=== PATIENT | male | born 1970 | race Caucasian/White ===

== ENCOUNTER 2024-07-27 14:09 | Outpatient (OUT) | payer BC, SELFPAY ==
--- NOTE | 2024-07-27 14:16 | ECG_ITS ---
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
[2024-07-27 15:08] LABS: Basophils Percent Auto 0.2 % (0.2-2.0); Eosinophils Percent Auto 0.6 % (0.9-7.0); Hematocrit 43.6 % (42.0-54.0); Hemoglobin 15.5 g/dL (14.0-18.0); Lymphocytes Absolute Auto 1.5 10^3/uL (1.2-3.8); Lymphocytes Percent Auto 31.2 % (20.5-60.0); Mean Corpuscular HGB Conc 35.6 g/dL (29.9-35.2); Mean Corpuscular Hemoglobin 30.3 pg (25.9-34.0); Mean Corpuscular Volume 85.2 fL (80.0-94.0); Mean Platelet Volume 10.4 fL (9.5-13.5); Monocytes Absolute Auto 0.5 10^3/uL (0.3-0.8); Monocytes Percent Auto 11.2 % (1.7-12.0); Neutrophils Absolute Auto 2.7 10^3/uL (1.4-6.5); Neutrophils Percent Auto 56.8 % (43.0-75.0); Platelet Count 174 10^3/uL (150-450); Red Blood Count 5.12 10^6/uL (4.70-6.10); Red Cell Distribution Width 11.9 % (11.0-15.0); White Blood Count 4.7 10^3/uL (4.0-11.0)
[2024-07-27 15:13] LABS: Anion Gap 11.5; BUN Creatinine Ratio 12.7; Calcium 9.1 mg/dL (8.5-10.1); Carbon Dioxide 31.8 mmol/L (21.0-32.0); Chloride 100 mmol/L (98-107); Estimated GFR (African America >60 (>=60 mL/min/1.73m^2); Estimated GFR (Non-African Ame >60 (>=60 mL/min/1.73m^2); Glucose 96 mg/dL (74-106); Potassium 4.3 mmol/L (3.5-5.1); Sodium 139 mmol/L (136-145)
[2024-07-27 15:19] LABS: INR 0.98; Partial Thromboplastin Time 27.9 sec (22.3-36.2); Prothrombin Time 10.4 sec (9.0-11.6)
== END 2024-07-27 14:10 | disposition home or self-care (01) ==
PROVIDERS: PCP Family Medicine; Visit Provider Otolaryngology
DX: Z01.810 Encounter for preprocedural cardiovascular examination (principal); Z01.812 Encounter for preprocedural laboratory examination; J32.0 Chronic maxillary sinusitis
CPT/HCPCS: 36415; 80048; 85025; 85610; 85730; 93005

== ENCOUNTER 2024-08-06 07:51 | Day surgery (SDC) | payer BC, SELFPAY ==
[2024-07-27 14:44] VITALS: BP 143/93; PULSE 75; TEMP 36.4; O2SAT 98; BMI 30.2
[2024-08-06] VITALS (8 sets, daily range): BP systolic 127–141; BP diastolic 81–87; PULSE 68–87; TEMP 36.1–36.2; O2SAT 92–95; BMI 29.4
--- NOTE | 2024-08-06 | OP_ITS ---
OPERATION DATE: 08/06/2024 SURGEON: Neha Davey M.D. PREOPERATIVE DIAGNOSIS: Chronic maxillary sinusitis. POSTOPERATIVE DIAGNOSIS: Chronic maxillary sinusitis. PROCEDURE: Bilateral maxillary antrostomy with removal of tissue. ANESTHESIA: General endotracheal. COMPLICATIONS: None. FINDINGS: Copious bilateral maxillary sinus fungal debris consistent with allergic fungal sinusitis. INDICATIONS: This 53-year-old man presented with a long history of chronic sinusitis and CT findings suggestive of bilateral maxillary allergic fungal sinusitis. PROCEDURE: Patient identified in the holding area and taken back to the OR where he was placed in a supine position. After induction of general endotracheal anesthesia, Afrin soaked pledgets were placed in each side of the nose and, after waiting adequate time for decongestion, the nose was copiously irrigated bilaterally. Attention was then turned to the right nose and lidocaine 1% with 1:100,000 epinephrine injected into the middle turbinate and lateral nasal wall. An Afrin soak jessica was placed lateral to the turbinate. Then, the same was done on the left. After waiting adequate time for hemostasis, the right nose was approached with the nasal endoscope. A curved scissor to the right was used to incise the anterior portion of the middle turbinate and it was removed with an ethmoid forcep. The posterior root of the turbinate was prophylactically cauterized to minimize the risk of postoperative bleeding. The uncinate process was then incised with a sickle knife and removed with an ethmoid forcep. The natural ostium of the maxillary sinus was identified with a [place] seeker and the antrostomy was opened posteriorly with a straight cutting forcep and inferiorly with side biting forceps and anteriorly with back biting forceps. There was immediately evident fungal debris. Using various suctions and copious irrigation, the sinus was completely debrided and, after verifying that the sinus was fully debrided with a 70 degree nasal endoscope, the sinus was irrigated several more times. Attention was then turned to the left side of the nose and the same procedure was performed. Patient was then awakened and taken to the recovery room in good condition. LUIS
--- OUTSIDE RECORDS SUMMARY | 2024-08-06 07:54 | XMS_ITS | CCD ---
Author Organization [facility] Care Team Providers Care Credit Department Manager Name Role Phone Rhonda Pitts MD Primary Care Provider Rhonda Pitts MD Unavailable Rhonda Pitts MD Primary Care Provider [phone] Magda Haywood MD Attending Provider [phone] RHONDA PITTS Attending Unavailable RHONDA PITTS Referring Unavailable NEHA AGEE Attending Unavailable ISABELLA MARLEY Attending Unavailable RHONDA PITTS Attending Unavailable AIDE GTZ Attending Unavailable Magda Haywood Admitting Unavailable Rhonda Pitts Primary Care Unavailable Magda Haywood Attending Unavailable Medications Current Medications Medication Drug Class(es) Dates Sig (Normalized) Sig (Original) amLODIPine 5 mg oral tablet (13 sources) Dihydropyridine Calcium Channel Caio Start: 04-01-2024 amLODIPine (Norvasc) 5 MG tablet Indications: Primary hypertension (CMS/HCC) Take 1/2 tablet daily 04/01/2024 Active Start: 11-18-2023 End: 04-01-2024 take 1 tablet by mouth once daily in the morning amLODIPine (Norvasc) 5 MG tablet Indications: Primary hypertension (CMS/HCC) TAKE 1 TABLET BY MOUTH EVERY DAY IN THE MORNING 100 tablet 3 11/18/2023 04/01/2024 Discontinued amoxicillin 500 mg oral tablet (1 source) Penicillin-class Antibacterial Start: 01-21-2024 End: 01-31-2024 take 2 tablets by mouth in the morning amoxicillin (Amoxil) 500 MG tablet Indications: Acute non-recurrent maxillary sinusitis Take 2 tablets (1,000 mg) by mouth in the morning and 2 tablets (1,000 mg) before bedtime. Do all this for 10 days. 40 tablet 01/21/2024 01/31/2024 Active chlorhexidine gluconate 1.2 mg/ml mouthwash (2 sources) Start: 04-01-2024 End: 04-15-2024 chlorhexidine (Peridex) 0.12 % solution Indications: Abscessed tooth Use 15 mL in the mouth or throat if needed for wound care for up to 14 days 120 mL 04/01/2024 04/15/2024 Active hydroCHLOROthiazide 12.5 mg / irbesartan 300 mg oral tablet (11 sources) Thiazide Diuretic, Angiotensin 2 Receptor Caio Start: 10-30-2023 take 1 tablet by mouth once daily in the morning irbesartan-hydroC HLOROthiazide (Avalide) 300-12.5 MG tablet Indications: Primary hypertension (CMS/HCC) TAKE 1 TABLET BY MOUTH EVERY DAY IN THE MORNING 100 tablet 3 10/30/2023 Active meloxicam 15 mg oral tablet (10 sources) Nonsteroidal Anti-inflammatory Drug Start: 07-17-2024 meloxicam (Mobic) 15 MG tablet 07/17/2024 Active Start: 05-01-2024 End: 06-18-2024 take 1 tablet by mouth in the morning meloxicam (Mobic) 15 MG tablet Indications: Psoriatic arthritis of multiple joints (CMS/HCC) TAKE 1 TABLET BY MOUTH IN THE MORNING. 90 tablet 1 05/01/2024 06/18/2024 Discontinued (Therapy completed) Start: 11-08-2023 take 1 tablet by nena th in the morning meloxicam (Mobic) 15 MG tablet Indications: Psoriatic arthritis of multiple joints (CMS/HCC) TAKE 1 TABLET BY MOUTH IN THE MORNING. 90 tablet 1 11/08/2023 Active triamcinolone acetonide 10 mg/ml injectable suspension (11 sources) Corticosteroid Start: 08-22-2023 triamcinolone acetonide (Kenalog) injection 5 mg Completed/Discontinued Medications Medication Drug Class(es) Dates Sig (Normalized) Sig (Original) cefdinir 300 mg oral capsule (6 sources) Cephalosporin Antibacterial Start: 06-18-2024 End: 07-21-2024 take 1 capsule by mouth in the morning cefdinir (Omnicef) 300 MG capsule Indications: Abscessed tooth Take 1 capsule (300 mg) by mouth in the morning and 1 capsule (300 mg) before bedtime. 60 capsule 06/18/2024 07/21/2024 Discontinued (Therapy completed) Start: 04-01-2024 End: 04-11-2024 take 1 capsule by mouth in the morning cefdinir (Omnicef) 300 MG capsule Indications: Abscessed tooth Take 1 capsule (300 mg) by mouth in the morning and 1 capsule (300 mg) before bedtime. Do all this for 10 days. 20 capsule 04/01/2024 04/11/2024 Active Problems Active Problems Problem Classification Problem Date Documented Da te Episodic/Chronic Disorders of lipid metabolism (11 sources) Hypertriglyceridemi a; Translations: [Pure hyperglyceridemia] Onset: 12-09-2023 12-09-2023 Chronic Disorders of teeth and jaw (14 sources) Dental abscess; Translations: [Periapical abscess without sinus] Onset: 06-18-2024 04-01-2024 Episodic Essential hypertension (20 sources) Essential hypertension; Translations: [Essential (primary) hypertension] Onset: 11-04-2022 04-01-2024 Chronic Headache; including migraine (11 sources) Chronic cluster headache; Translations: [Chronic cluster headache, intractable] Onset: 11-04-2022 11-04-2022 Chronic Hyperplasia of prostate (11 sources) Benign prostatic hyperplasia; Translations: [Benign prostatic hyperplasia without lower urinary tract symptoms] Onset: 11-04-2022 11-04-2022 Chronic Nonspecific chest pain (7 sources) Chest pain; Translations: [Other chest pain] Onset: 06-18-2024 06-18-2024 Episodic Other inflammatory condition of skin (11 sources) Psoriasis vulgaris; Translations: [Psoriasis vulgaris] Onset: 11-04-2022 11-04-2022 Chronic Other inflammatory condition of skin (11 sources) Arthropathic psoriasis, unspecified; Translations: [Psoriatic arthropathy] Onset: 06-06-2023 06-06-2023 Chronic Other upper respiratory infections (14 sources) Chronic maxillary sinusitis; Translations: [Chronic maxillary sinusitis] Onset: 06-18-2024 06-18-2024 Chronic Other upper respiratory infections (13 sources) Acute maxillary sinusitis; Translations: [Acute maxillary sinusitis, unspecified] Onset: 06-18-2024 01-21-2024 Episodic Past or Other Problems Problem Classification Problem Date Documented Da te Episodic/Chronic Spondylosis; intervertebral disc disorders; other back problems (11 sources) Acute low back pain; Translations: [Acute left-sided low back pain without sciatica] Onset: 11-05-2022 11-05-2022 Episodic Results Test Name Value Interpretation Reference Range Facil sukhdev ECG 12-LEADon 07-28-2024 [place] [address] Electrocardiograph Report Signed Patient: RADHA SHANE MR#: [id number] : 1970 Acct:[id number] Age/Sex: 53 / M ADM Date: 07/27/24 Loc: PST Attending Dr: Neha Agee M.D. Ordering Physician: Neha Agee M.D. Date of Service: 07/27/24 Procedure(s): ECG 12 lead Accession Number(s): [id number] cc: [facility] Test Date: 2024-07-27 Pat Name: Radha Shane Department: Room: - Gender: Male Instrument Shop Supervisor: : 1970 Requested By: NEHA AGEE Order Number: [id number] Reading MD: SELENA DINERO Measurements Intervals [place] Rate: 71 P: 22 MS: 204 QRS: -21 QRSD: 98 T: -9 QT: 378 QTc: 412 Interpretive Statements SINUS RHYTHM BORDERLINE LEFT AXIS DEVIATION [QRS AXIS < -20] No previous ECG available for comparison Dictated By: Selena Dinero M.D. Signed By: 07/28/24 0531 DD/ 1448 TD/TT: Scale And Skip Car Operator: [facility] Radiology, Radiologist, MD - 07/28/2024 [place] [address] Electrocardiograph Report Signed Patient: RADHA SHANE MR#: [id number] : 1970 Acct:[id number] Age/Sex: 53 / M ADM Date: 07/27/24 Loc: PST Attending Dr: Neha Agee M.D. Ordering Physician: Neha Agee M.D. Date of Service: 07/27/24 Procedure(s): ECG 12 lead Accession Number(s): [id number] cc: [facility] Test Date: 2024-07-27 Pat Name: Radha Shane Department: Room: - Gender: Male Instrument Shop Supervisor: : 1970 Requested By: NEHA AGEE Order Number: [id number] Reading MD: SELENA DINERO Measurements Intervals [place] Rate: 71 P: 22 MS: 204 QRS: -21 QRSD: 98 T: -9 QT: 378 QTc: 412 Interpretive Statements SINUS RHYTHM BORDERLINE LEFT AXIS DEVIATION [QRS AXIS < -20] No previous ECG available for comparison Dictated By: Selena Dinero M.D. Signed By: 07/28/24 0531 DD/ 1448 TD/TT: Scale And Skip Car Operator: [facility] ECG 12-LEADOrdered By: Verysell Group logist Radiology on 07-28-2024 [facility] Work Phone: ALL BASIC METABOLIC PANELon 07-27-2024 Anion gap [Moles/Vol] 11.5 mmol/L [facility] Calcium [Mass/Vol] 9.1 mg/dL 8.5 - 10. 1 mg/dL [facility] Chloride [Moles/Vol] 100 mmol/L 98 - 107 mmol/L [facility] CO2 [Moles/Vol] 31.8 mmol/L 21.0 - 32.0 mmol/L [facility] Creatinine [Mass/Vol] 1.1 mg/dL 0.70 - 1.30 mg/dL [facility] GFR/1.73 sq M.predicted CKD-EPI (S/P/Bld) [Vol rate/Area] >60 >=60 mL/min/1.73m 2 [facility] Glucose [Mass/Vol] 96 mg/dL 74 - 106 mg/dL [facility] Potassium [Moles/Vol] 4.3 mmol/L 3.5 - 5.1 mmol/L [facility] Sodium [Moles/Vol] 139 mmol/L 136 - 145 mmol/L [facility] TBH EGFR-NON AF NIUEAN >60 >=60 mL/min/1.73m 2 [facility] Urea nitrogen [Mass/Vol] 14 mg/dL 7.0 - 18.0 mg/dL [facility] Urea nitrogen/Creatinin e [Mass ratio] 12.7 mg/mg [facility] ECG 12-LEADon 07-27-2024 Radiology Study observation (narrative) [facility] NM ana perf SPECT rest stron 07-03-2024 NM ana perf SPECT rest str [facility] [place] [address] Nuclear Medicine Report Signed Patient: Radha Shane MR#: [id number] : 1970 Acct:[id number] Age/Sex: 53 / M ADM Date: 07/02/24 Loc: Room: Type: [facility] Attending Dr: Magda Haywood MD Copies to: Magda Haywood MD, [facility] Phoebe Ventura MD Ordering Provider: Magda Haywood MD, [facility] Date of Service: 07/02/24 NM/NM ana perf SPECT rest str: CP REFERRING PHYSICIAN: Magda Haywood MD REASON FOR THE STUDY: Chest pain. PROCEDURE: The patient underwent 2-day rest/stress protocol. Rest images obtained by injecting 28.5 mCi of Cardiolite. Stress images obtained by injecting 29.7 mCi of Cardiolite. Subsequently, gated SPECT and ejection fraction studies were performed. IMAGING RESULT: This appears to be a fair study. There is no clear pattern of ischemia or myocardial infarction. Left ventricular ejection fraction appears normal, calculated at 73%. TID index normal at 0.89. CONCLUSION: 1. No clear pattern of ischemia or myocardial infarction. 2. Normal left ventricular systolic function and wall motion. 3. No previous study available for comparison. Transcribed By: OLIVIA 07/03/242050 Dictated By: Phoebe Ventura MD 07/03/24 1645 Signed By: 07/04/24 0828 Normal The [facility] CT SINUS WOon 06-30-2024 CT SINUS WO Exam: CT SINUS WO History: Chronic sinusitis Technique: Multiple contiguous axial images were obtained of the maxillofacial bones without contrast. Multiplanar reformats were obtained. All CT scans at this facility use dose modulation, iterative reconstruction, and/or weight based dosing when appropriate to reduce radiation dose to as low as reasonably achievable. Comparison: None available Findings: Maxillary Sinuses: Postsurgical changes of bilateral antrostomy. Near complete opacification of the bilateral maxillary sinuses. Increased density material within the maxillary sinuses likely represents inspissated mucus however fungal sinusitis can have this appearance. Ethmoid sinuses: Mild mucosal thickening. Sphenoid sinuses: Clear. There is sphenoid pneumatization that extends inferior and posterior to the sella, resulting in a thin posterior bony margin of the clivus, consistent with sellar type pneumatization. Frontal sinuses: Clear. Right sphenoethmoidal recess: Clear. Left sphenoethmoidal recess: Clear. Right frontal recess: Clear. Left frontal recess: Clear. Nasal septum: No significant deviation. Other: Keros type 2 olfactory fossa. No [place] or Connie cells. Mastoid air cells & middle ears: Clear. The middle ears are unremarkable. Soft tissues & Brain: No acute abnormality identified. Orbital contents are within normal limits. IMPRESSION: Paranasal sinus disease as detailed. ELECTRONICALLY SIGNED BY: Rommel Mcgrath, DO Normal Not Available Vital Signs Date Time Vital Sign Value Performing Clinician Faci lity 07-21-2024 14:52-0500 Body height 180.3 cm Neha Agee MD Work Phone: [facility] 07-21-2024 14:52-0500 Body mass index (BMI) [Ratio] 30.13 kg/m2 Neha Agee MD Work Phone: [facility] 07-21-2024 14:52-0500 Body weight 97.98 kg Neha Agee MD Work Phone: [facility] 07-21-2024 14:52-0500 Diastolic blood pressure 75 mm[Hg] Neha Agee MD Work Phone: [facility] 07-21-2024 14:52-0500 Heart rate 82 /min Neha Agee MD Work Phone: [facility] 07-21-2024 14:52-0500 Systolic blood pressure 111 mm[Hg] Neha Agee MD Work Phone: [facility] 06-18-2024 15:20-0500 Body height 180.3 cm Rhonda Pitts MD Work Phone: [facility] 06-18-2024 15:20-0500 Body mass index (BMI) [Ratio] 29.85 kg/m2 Rhonda Pitts MD Work Phone: [facility] 06-18-2024 15:20-0500 Body weight 97.07 kg Rhonda Pitts MD Work Phone: [facility] 06-18-2024 15:20-0500 Diastolic blood pressure 88 mm[Hg] Rhonda Pitts MD Work Phone: [facility] 06-18-2024 15:20-0500 Heart rate 76 /min Rhonda Pitts MD Work Phone: [facility] 06-18-2024 15:20-0500 SaO2% (BldA) [Mass fraction] 96 % Rhonda Pitts MD Work Phone: [facility] 06-18-2024 15:20-0500 Systolic blood pressure 134 mm[Hg] Rhonda Pitts MD Work Phone: [facility] 04-01-2024 15:18-0500 Body height 180.3 cm Aide Gtz HYBRID TECHNOLOGIST Work Phone: [facility] 04-01-2024 15:18-0500 Body mass index (BMI) [Ratio] 29.01 kg/m2 Aide Gtz HYBRID TECHNOLOGIST Work Phone: [facility] 04-01-2024 15:18-0500 Body weight 94.35 kg Aide Gtz HYBRID TECHNOLOGIST Work Phone: [facility] 04-01-2024 15:18-0500 Diastolic blood pressure 84 mm[Hg] Aide Gtz HYBRID TECHNOLOGIST Work Phone: [facility] 04-01-2024 15:18-0500 Heart rate 75 /min Aide Gtz HYBRID TECHNOLOGIST Work Phone: [facility] 04-01-2024 15:18-0500 SaO2% (BldA) [Mass fraction] 95 % Aide Gtz HYBRID TECHNOLOGIST Work Phone: [facility] 04-01-2024 15:18-0500 Systolic blood pressure 136 mm[Hg] Aide Gtz HYBRID TECHNOLOGIST Work Phone: [facility] Encounters Encounter Date Encounter Type Care Provider Facility Start: 07-27-2024 End: 07-28-2024 [facility] Result Encounter Neha Agee MD Work Phone: [facility] Unsolicited Start: 07-27-2024 End: 07-28-2024 [facility] Result Encounter Neha Agee MD Work Phone: [facility] Unsolicited Start: 07-21-2024 End: 07-21-2024 Office outpatient new 60 minutes Neha Agee MD Work Phone: [facility] Comment on above: Chronic maxillary si nusitis (Primary Dx) Start: 07-21-2024 End: 07-21-2024 ambulatory NEHA AGEE Not Available Start: 07-21-2024 End: 07-21-2024 Bamboo flowsheet Neha Agee MD Work Phone: [facility] Start: 07-21-2024 End: 07-21-2024 Bamboo flowsheet Neha Agee MD Work Phone: [facility] Start: 07-02-2024 End: 07-02-2024 Patient encounter procedure Rhonda Pitts MD Work Phone: [facility] Work Phone: Start: 07-02-2024 End: 07-02-2024 ambulatory Rhonda Pitts MD Work Phone: [facility] Work Phone: Start: 06-30-2024 End: 06-30-2024 ambulatory RHONDA PITTS Not Available Start: 06-18-2024 End: 06-18-2024 Office outpatient visit 25 minutes Rhonda Pitts MD Work Phone: [facility] Comment on above: Primary hypertension (CMS/HCC) (Primary Dx); Acute non-recurrent maxillary sinusitis; Abscessed tooth; Chronic maxillary sinusitis Start: 06-18-2024 End: 06-18-2024 ambulatory RHONDA PITTS Not Available Start: 06-02-2024 End: 06-26-2024 Telephone encounter Rhonda Pitts MD Work Phone: [facility] Start: 04-01-2024 End: 04-01-2024 Office outpatient visit 15 minutes Aide Gtz HYBRID TECHNOLOGIST Work Phone: [facility] Comment on above: Abscessed tooth (Yu wilfred Dx); Primary hypertension (CMS/HCC) Start: 04-01-2024 End: 04-01-2024 ambulatory ADIE GTZ Not Available Start: 01-20-2024 End: 01-21-2024 Telephone encounter Rhonda Pitts MD Work Phone: [facility] Start: 12-09-2023 End: 12-09-2023 ambulatory RHONDA PITTS Not Available Start: 08-22-2023 End: 08-22-2023 ambulatory ISABELLA MARLEY Not Available Procedures Date Procedure Procedure Detail Performing Clinician Start: 07-27-2024 ECG 12-LEAD Generic Ex ternal Data Provider Start: 07-27-2024 ALL BASIC METABOLIC PANEL Neha Agee MD Work Phone: Start: 11-29-2015 Colonoscopy Rhonda Pitts MD Work Phone: Plan of Treatment Date Care Activity Detail Author Start: 11-28-2025 Screening for malign ant neoplasm of colon [facility] Start: 10-22-2024 End: 10-22-2024 Patient encounter procedure 10/22/2024 3:00 PM EDT Consult [facility] [address] [place] [id number] Neha Agee MD [address] [place] [address] [facility] Start: 08-31-2024 End: 08-31-2024 Patient encounter procedure 08/31/2024 3:20 PM EDT Office Visit [facility] [address] [place] [phone] Isabella Marley, AUTOMATIC LEHR OPERATOR-PROJECT DIRECTOR [address] [place], [place] [phone] [facility] Start: 08-20-2024 End: 08-20-2024 Patient encounter procedure 08/20/2024 3:20 PM EDT Office Visit [facility] [address] [place] [address] Isabella Marley, AUTOMATIC LEHR OPERATOR-PROJECT DIRECTOR [address] [place] [address] [facility] Start: 07-21-2024 End: 07-21-2024 Patient encounter procedure 07/21/2024 3:00 PM EST Office Visit [facility] [address] [facility] [address] [place] [address] Neha Agee MD [address] [facility] [address] [place] [address] Arrived [facility] Comment on above: Arrived Start: 07-02-2024 Radionuclide myocard ial perfusion stress study NM ana perf SPECT rest & str [facility] Start: 07-02-2024 SPECT Heart perfusio n at rest and W stress and W radionuclide IV [facility] Start: 06-30-2024 End: 06-30-2024 Professional / ancillary services management 06/30/2024 3:15 PM EST Ancillary Procedure [facility] [address] [place] [phone] Start: 06-18-2024 End: 06-18-2024 Patient encounter procedure 06/18/2024 3:15 PM EST Office Visit [facility] [address] [place] [address] Rhonda Pitts MD [address] [place] [address] [facility] Start: 06-18-2024 End: 06-18-2025 CT Maxillofacial region WO and W contrast IV CT SINUS WO IV CONTRAST Imaging Routine Acute non-recurrent maxillary sinusitis Abscessed tooth Chronic maxillary sinusitis Expected: 06/18/2024, Expires: 06/18/2025 [facility] Work Phone: Comment on above: Expected: 06/18/2024 , Expires: 06/18/2025 Start: 05-26-2024 Influenza vaccination Influenza Vacc ine (#1) [facility] Comment on above: Postponed from 01/25 (Patient Refused) Start: 01-26-2024 Influenza vaccination Influenza Vacc ine (#1) [facility] Start: 1970 Screening for malign ant neoplasm of colon [facility] Immunizations Immunization Date Immunization Notes Care Provider Fa cility 03-13-2019 seasonal influenza, intradermal, preservative free Rhonda Pitts MD Work Phone: [facility] 03-13-2019 influenza virus vacc ine, unspecified formulation Rhonda Pitts MD Work Phone: [facility] Payers Date Payer Category Payer Self-pay 2020 [facility] BCBS [id number] 2020 Unknown BCBS BCBS [id number] 2020-Present [phone] [address] [place] [address] [id number] 2020 Unknown [id number] 1970 Unknown [id number] [id number] 1970 Unknown [id number] 2.9 1970 Unknown [id number] [id number] 1970 Unknown [id number] [id number] 1970 Unknown [id number] 2.9 1970 Unknown [id number] [id number] Unknown [id number] [id number] Social History Date Type Detail Facility Start: 11-05-2022 Tobacco smoking stat [facility] Never smoked tobacco [facility] Start: 11-05-2022 Tobacco use and exposure Smoke less tobacco non-user [facility] Start: 04-01-2024 End: 07-21-2024 Alcoholic beverage intake Current drinker of alcohol (finding) [facility] Start: 12-08-2023 End: 07-21-2024 History of Social function [facility] Start: 12-08-2023 End: 07-21-2024 [id number] Health Literacy [facility] How often do you nee d to have someone help you when you read instructions, pamphlets, or other written material from your doctor or pharmacy [SILS] Never [facility] Do you belong to any clubs or organizations such as hindu groups, unions, fraternal or athletic groups, or school groups? No [facility] Are you now , , , , never or living with a partner? [facility] How often to you hav e a drink containing alcohol? 2-3 time sa week [facility] How many standard dr inks containing alcohol do you have on a typical day? 1 or 2 [facility] How often do you hav e 6 or more drinks on 1 occasion? Never [facility] Do you feel stress - tense, restless, nervous, or anxious, or unable to sleep at night because your mind is troubled all the time - these days [OSQ] Not at all [facility] (I/We) worried whe er (my/our) food would run out before (I/we) got money to buy more. Never true [facility] Start: 10-28-2022 Alcohol Comment caffeine: soda [facility] Start: 1970 Sex assigned at Not on file [facility] Work Phone: Start: 07-03-2024 Sex Male (finding) [facility] Start: 1970 Sex Assigned At Male F [facility] Clinical Notes 01-20-2024 to 07-21-2024 Neha Agee MD - 07/21/2024 3:00 PM Radha Pitts MD - 06/18/2024 3:33 PM Radha Pitts MD - 06/18/2024 3:32 PM Radha Pitts MD - 06/18/2024 3:31 PM ESTPatient Instructions Note Date & Type Note Facility 07-21-2024 History of Presen t illness Narrative Subjective Patient ID: Brown Shane is a 53 y.o. male who presents for Sinusitis Pt reports within a week of getting a filling 8 mo ago he developed yellow rhinorrhea whenever he bends over. Just finished 30 days of cefdinir and already has sx. Has also been tx with augmentin, amox, and another course of cefdinir. 07/01 CT sinus reviewed and there is near-total opacification of the maxillary sinuses. In the left maxillary sinus there is calcified debris suggesting fungal debris. Review of Systems All other systems reviewed and are negative. Family History Problem Relation Name Age of Onset Stroke Father Chris Shane Stomach cancer Sister Malena Shane Cancer Sister Malena Shane Cancer Paternal Grandfather Gaudencio Shane Hearing loss Paternal Grandmother Syeda Shane Active Ambulatory Problems Diagnosis Date Noted Benign essential hypertension (CMS/HCC) 11/04/2022 Benign prostatic hyperplasia 11/04/2022 Hypertension (CMS/HCC) 11/04/2022 Intractable chronic cluster headache 11/04/2022 Psoriasis vulgaris ([facility]/HCC) 11/04/2022 Acute left-sided low back pain without sciatica 11/05/2022 Psoriatic arthritis of multiple joints ([facility]/HCC) 06/06/2023 Hypertriglyceridemia ([facility]) 12/09/2023 Acute non-recurrent maxillary sinusitis 06/18/2024 Chronic maxillary sinusitis 06/18/2024 Abscessed tooth 06/18/2024 Other chest pain 06/18/2024 Resolved Ambulatory Problems Diagnosis Date Noted No Resolved Ambulatory Problems Past Medical History: Diagnosis Date Gastritis and duodenitis HL (hearing loss) 05/27/2013 Past Surgical History: Procedure Laterality Date COLONOSCOPY 11/21/2015 Colonoscopy and EGD Diffuse gastritis/Duodenitis, Unremarkable Colon COLONOSCOPY 11/21/2015 ESOPHAGOGASTRODUODENOSCOPY 11/21/2015 Gastritis, Duodenitis EYE SURGERY 2000 LASIK LASIK 2000 VASECTOMY 1994 No Known Allergies Current Outpatient Medications on File Prior to Visit Medication Sig Dispense Refill amLODIPine (Norvasc) 5 MG tablet Take 1/2 tablet daily irbesartan-hydroCHLOROthiazide (Avalide) 300-12.5 MG tablet TAKE 1 TABLET BY MOUTH EVERY DAY IN THE MORNING 100 tablet 3 meloxicam (Mobic) 15 MG tablet [DISCONTINUED] cefdinir (Omnicef) 300 MG capsule Take 1 capsule (300 mg) by mouth in the morning and 1 capsule (300 mg) before bedtime. 60 capsule 0 Current Facility-Administered Medications on File Prior to Visit Medication Dose Route Frequency Provider Last Rate Last Admin triamcinolone acetonide (Kenalog) injection 5 mg 5 mg Intra-lesional Once Isabella Marley APRN-PROJECT DIRECTOR Objective Last Recorded Vitals Vitals: 07/21/24 1452 BP: 111/75 Pulse: 82 ENT Physical Exam Constitutional Appearance: patient appears well-developed and well-nourished, Head and Face Appearance: head appears normal and face appears atraumatic; Ear Ear comments: Delfino ears normal Nose External Nose: nares patent bilaterally; external nose normal; Internal Nose: nasal mucosa normal; Oral Cavity/Oropharynx Lips: normal; Teeth: normal; Gums: gingiva normal; Tongue: normal; Oral mucosa: normal; Hard palate: normal; Neck Neck: neck normal; neck palpation normal; Thyroid: thyroid normal; Respiratory Inspection: breathing unlabored; normal breathing rate; Auscultation: breath sounds are clear; Cardiovascular Inspection: extremities are warm and well perfused; no peripheral edema present; Auscultation: regular rate and rhythm; Assessment/Plan Diagnoses and all orders for this visit: Chronic maxillary sinusitis Pt has chronic (>12 weeks) sinusitis that has failed aggressive medical management. Proceed with delfino MMA. Risks, including epistaxis, anosmia, orbit injury with diploia or blindness, CSF leak, and persistent sx d/w pt who expressed understanding. documented in this encounter [facility] 06-18-2024 History of Presen t illness Narrative Associated Problem(s): Acute non-recurrent maxillary sinusitis Has a lot of nasal drainage When running is discolored, yellowish greenish Associated Problem(s): Abscessed tooth S/p root canal Associated Problem(s): Chronic maxillary sinusitis Add Probiotic to help replenish the good bacteria that are destroyed by the Antibiotics Florastor Florajen Align or try Activia in Yogurt Probiotics reduce the risk of antibiotic induced diarrhea Associated Problem(s): Hypertension (CMS/HCC) Our specific goals, for your hypertension, is to keep your blood pressure less than 140/90, and the importance of weight control. We made recommendations on how to control your blood pressure, and minimize your risk of these copmplications. We also discussed your current barriers to a healthy living and importance of healthy diet and exercise. Prior to your visit today we have reviewed your chart and formed a plan to assist with providing you the best possible care. We reviewed the possible complications of hypertension including, stroke, heart failure and kidney impairment. In addition, we discussed your medications, the importance of taking them as prescribed. DASH diet handouts Images from the original note were not included. Subjective Patient ID: Brown Shane is a 53 y.o. male who presents for Hypertension. Abscess tooth is still going on , pt believes he still has an infection going on , he can smell this, been going on since October Pt has had multiple abx seems to come back every time Pt is wanting to get off of the meloxicam Pt states last week sometime he had an episode where his BP was very low , had night sweats, chest pressure, but since he has had no trouble No exertional chest pain, was actually sleeping. Dad had a mini stroke in late 50's early 60's Hypertension This is a chronic problem. The current episode started more than 1 month ago. The problem has been gradually improving since onset. The problem is controlled. Pertinent negatives include no chest pain or shortness of breath. (Floater) There are no associated agents to hypertension. Risk factors for coronary artery disease include male gender and family history. Past treatments include calcium channel blockers and beta blockers. The current treatment provides mild improvement. There are no compliance problems. There is no history of kidney disease, CAD/SD, CVA or PVD. Current Outpatient Medications on File Prior to Visit Medication Sig Dispense Refill irbesartan-hydroCHLOROthiazide (Avalide) 300-12.5 MG tablet TAKE 1 TABLET BY MOUTH EVERY DAY IN THE MORNING 100 tablet 3 amLODIPine (Norvasc) 5 MG tablet Take 1/2 tablet daily [DISCONTINUED] cefdinir (Omnicef) 300 MG capsule Take 1 capsule (300 mg) by mouth in the morning and 1 capsule (300 mg) before bedtime. Do all this for 10 days. 20 capsule 0 [DISCONTINUED] meloxicam (Mobic) 15 MG tablet TAKE 1 TABLET BY MOUTH IN THE MORNING. 90 tablet 1 Current Facility-Administered Medications on File Prior to Visit Medication Dose Route Frequency Provider Last Rate Last Admin triamcinolone acetonide (Kenalog) injection 5 mg 5 mg Intra-lesional Once Isabella Marley, CARLENE-PROJECT DIRECTOR I have reviewed and reconciled the history and medication list with the patient today. No Known Allergies Social History Tobacco Use Smoking status: Never Smokeless tobacco: Never Substance Use Topics Alcohol use: Yes Alcohol/week: 2.0 - 3.0 standard drinks of alcohol Types: 2 - 3 Standard drinks or equivalent per week Comment: caffeine: soda Family History Problem Relation Name Age of Onset Stroke Father Stomach cancer Sister Past Medical History: Diagnosis Date Gastritis and duodenitis Hypertension (CMS/HCC) Past Surgical History: Procedure Laterality Date COLONOSCOPY 11/21/2015 Colonoscopy and EGD Diffuse gastritis/Duodenitis, Unremarkable Colon COLONOSCOPY 11/21/2015 ESOPHAGOGASTRODUODENOSCOPY 11/21/2015 Gastritis, Duodenitis EYE SURGERY 2000 LASIK LASIK 2000 VASECTOMY 1994 Visit Vitals BP 134/88 Pulse 76 Ht 5' 11 Wt 214 lb SpO2 96% BMI 29.85 kg/m Smoking Status Never BSA 2.21 m Review of Systems HENT: Positive for sinus pressure and sinus pain. Respiratory: Negative for shortness of breath. Cardiovascular: Negative for chest pain. Objective Physical Exam Vitals reviewed. Constitutional: Appearance: Normal appearance. HENT: Head: Normocephalic. Nose: Rhinorrhea present. Right Nostril: No foreign body. Left Nostril: No foreign body. Right Turbinates: Enlarged. Not swollen or pale. Left Turbinates: Enlarged. Not swollen or pale. Mouth/Throat: Mouth: Mucous membranes are moist. Cardiovascular: Rate and Rhythm: Normal rate and regular rhythm. Pulses: Normal pulses. Pulmonary: Effort: Pulmonary effort is normal. Breath sounds: Normal breath sounds. Neurological: General: No focal deficit present. Mental Status: He is alert and oriented to person, place, and time. Psychiatric: Mood and Affect: Mood normal. Assessment/Plan Problem List Items Addressed This Visit Hypertension (CMS/HCC) - Primary Our specific goals, for your hypertension, is to keep your blood pressure less than 140/90, and the importance of weight control. We made recommendations on how to control your blood pressure, and minimize your risk of these copmplications. We also discussed your current barriers to a healthy living and importance of healthy diet and exercise. Prior to your visit today we have reviewed your chart and formed a plan to assist with providing you the best possible care. We reviewed the possible complications of hypertension including, stroke, heart failure and kidney impairment. In addition, we discussed your medications, the importance of taking them as prescribed. DASH diet handouts Acute non-recurrent maxillary sinusitis Has a lot of nasal drainage When running is discolored, yellowish greenish Relevant Orders CT SINUS WO IV CONTRAST Chronic maxillary sinusitis Add Probiotic to help replenish the good bacteria that are destroyed by the Antibiotics Florastor Florajen Align or try Activia in Yogurt Probiotics reduce the risk of antibiotic induced diarrhea Relevant Orders CT SINUS WO IV CONTRAST Abscessed tooth S/p root canal Relevant Medications cefdinir (Omnicef) 300 MG capsule Other Relevant Orders CT SINUS WO IV CONTRAST No follow-ups on file. documented in this encounter [facility] 06-04-2024 Telephone encount er Note Pt has called back asking for the next steps. He's uncomfortable and would like something to help until he can get a scan done. He is looking for advise from Dr Pitts [facility] 06-04-2024 Miscellaneous Notes Formattin g of this note might be different from the original. Pt has called back asking for the next steps. He's uncomfortable and would like something to help until he can get a scan done. He is looking for advise from Dr Pitts Pt would like to know what his next steps are. He's still having discharge from his mouth/tooth that he can smell and taste. amLODIPine (Norvasc) 5 MG tablet worked the best. Pt states his hopes got up that it was finally going away but unfortunately it is back after getting a head cold. Pt states Aide mentioned doing a scan to get a better look at what is going but he couldn't remember which one. documented in this encounter [facility] 06-02-2024 Telephone encount er Note Pt would like to know what his next steps are. He's still having discharge from his mouth/tooth that he can smell and taste. amLODIPine (Norvasc) 5 MG tablet worked the best. Pt states his hopes got up that it was finally going away but unfortunately it is back after getting a head cold. Pt states Aide mentioned doing a scan to get a better look at what is going but he couldn't remember which one. [facility] 04-01-2024 History of Presen t illness Narrative Subjective Patient ID: Brwon Shane is a 53 y.o. male who presents for abscess of tooth (left upper back molar). He reports worsening symptoms of yellow drainage from his nose, and down the back if his throat. Drainage is yellow in color and he can smell and taste infection. In the office--Mr. Shane gave me the following timeline: In September he underwent a filling of the back left upper molar. Early October started having increased pain in the left back upper molar. In late October he thought he had a sinus infection in which he was placed on amoxicillin without improvement. He then started tasting and smelling infection. He went to Dr. Cantu in [place] for 2nd opinion. Xray confirmed abscess infection in which he underwent a root canal 3 weeks ago. He was put back on Augmentin with continued issues. He reports two white pimple like spots around his tooth. Current Outpatient Medications on File Prior to Visit Medication Sig Dispense Refill amLODIPine (Norvasc) 5 MG tablet TAKE 1 TABLET BY MOUTH EVERY DAY IN THE MORNING 100 tablet 3 irbesartan-hydroCHLOROthiazide (Avalide) 300-12.5 MG tablet TAKE 1 TABLET BY MOUTH EVERY DAY IN THE MORNING 100 tablet 3 meloxicam (Mobic) 15 MG tablet TAKE 1 TABLET BY MOUTH IN THE MORNING. 90 tablet 1 Current Facility-Administered Medications on File Prior to Visit Medication Dose Route Frequency Provider Last Rate Last Admin triamcinolone acetonide (Kenalog) injection 5 mg 5 mg Intra-lesional Once Isabella Malrey, CARLENE-ERIK I have reviewed and reconciled the history and medication list with the patient today. No Known Allergies Social History Tobacco Use Smoking status: Never Smokeless tobacco: Never Substance Use Topics Alcohol use: Yes Alcohol/week: 2.0 - 3.0 standard drinks of alcohol Types: 2 - 3 Standard drinks or equivalent per week Comment: caffeine: soda Family History Problem Relation Name Age of Onset Stroke Father Stomach cancer Sister Past Medical History: Diagnosis Date Gastritis and duodenitis Hypertension (CMS/HCC) Past Surgical History: Procedure Laterality Date COLONOSCOPY 11/21/2015 Colonoscopy and EGD Diffuse gastritis/Duodenitis, Unremarkable Colon COLONOSCOPY 11/21/2015 ESOPHAGOGASTRODUODENOSCOPY 11/21/2015 Gastritis, Duodenitis EYE SURGERY 2000 LASIK LASIK 2000 VASECTOMY 1995 Visit Vitals Smoking Status Never Review of Systems Constitutional: Negative. HENT: Positive for dental problem. Eyes: Negative. Objective Physical Exam Vitals and nursing note reviewed. Constitutional: Appearance: Normal appearance. HENT: Head: Normocephalic. Right Ear: Tympanic membrane normal. Left Ear: Tympanic membrane normal. Mouth/Throat: Mouth: Mucous membranes are moist. Comments: Red back upper molar on left with two pimple like spots Eyes: Pupils: Pupils are equal, round, and reactive to light. Musculoskeletal: General: Normal range of motion. Cervical back: Normal range of motion. Skin: General: Skin is warm and dry. Neurological: General: No focal deficit present. Mental Status: He is alert. Psychiatric: Behavior: Behavior normal. Assessment/Plan Abscessed tooth - Primary -As described above. Start on chlorhexidine solution and cefdinir 300 mg BID x 10 days duration for suspected infection of tooth. He was also encouraged to follow up as scheduled with his dentist next week. Relevant Medications chlorhexidine (Peridex) 0.12 % solution cefdinir (Omnicef) 300 MG capsule Follow up prn, or if symptoms do not improve. Carmelita Astudillo NP documented in this encounter [facility] 04-01-2024 Instructions Carmelita Astudillo NP - 04/01/2024 3:30 PM EST Start chlorhexidine solution and cefdinir 300 mg BID x 10 days duration. Follow up with Dentist next week as scheduled. Follow up prn if symptoms do not improve. documented in this encounter [facility] 01-21-2024 Telephone encount er Note Would you like a medication sent, if so what [facility] 01-21-2024 Miscellaneous Notes Formattin g of this note might be different from the original. Would you like a medication sent, if so what Patient called back stating that this started to happen about a month ago. He said its all on his left side sinuses he said that when he leans over he will get a green discharge that has a scent to it. He said its really weird he's never smell it before but its starting to have a bad smell. He also stated that he got a filling on his tooth on the left side about 2 months ago and didn't know if that had anything to do with it but he does still have a little bit of tooth pain on that left side still. Attempted to call pt to get symptoms and when this started , not able to lm Patient states he has a sinus infection. Would like to have an antibiotic script sent to the pharmacy. documented in this encounter [facility] 01-21-2024 Telephone encount er Note Patient called back stating that this started to happen about a month ago. He said its all on his left side sinuses he said that when he leans over he will get a green discharge that has a scent to it. He said its really weird he's never smell it before but its starting to have a bad smell. He also stated that he got a filling on his tooth on the left side about 2 months ago and didn't know if that had anything to do with it but he does still have a little bit of tooth pain on that left side still. [facility] 01-20-2024 Telephone encount er Note Attempted to call pt to get symptoms and when this started , not able to lm [facility] 01-20-2024 Telephone encount er Note Patient states he has a sinus infection. Would like to have an antibiotic script sent to the pharmacy. [facility] Evaluation note Diagnosis Primary hypertension (CMS/HCC)- Primary Unspecified essential hypertension Acute left-sided low back pain without sciatica Primary hypertension (CMS/HCC)- Primary Unspecified essential hypertension Psoriatic arthritis of multiple joints (CMS/HCC) Benign essential hypertension (CMS/HCC)- Primary Essential hypertension, benign Hypertriglyceridemia (CMS/HCC) Pure hyperglyceridemia Abscessed tooth- Primary Periapical abscess without sinus Primary hypertension (CMS/HCC) Unspecified essential hypertension documented in this encounter [facility] HealthcareEvaluation note* Diagnosis Acute non-recurrent maxillary sinusitis- Primary documented in this encounter [facility] HealthcareEvaluation note* Diagnosis Primary hypertension (CMS/HCC)- Primary Unspecified essential hypertension Acute left-sided low back pain without sciatica Primary hypertension (CMS/HCC)- Primary Unspecified essential hypertension Psoriatic arthritis of multiple joints (CMS/HCC) Benign essential hypertension (CMS/HCC)- Primary Essential hypertension, benign Hypertriglyceridemia (CMS/HCC) Pure hyperglyceridemia Primary hypertension (CMS/HCC)- Primary Unspecified essential hypertension Acute non-recurrent maxillary sinusitis Abscessed tooth Periapical abscess without sinus Chronic maxillary sinusitis documented in this encounter [facility] HealthcareEvaluation noteNo assessment information availableAultman [facility] Work Phone: Evaluation note* Diagnosis Primary hypertension (CMS/HCC)- Primary Unspecified essential hypertension Acute left-sided low back pain without sciatica Primary hypertension (CMS/HCC)- Primary Unspecified essential hypertension Psoriatic arthritis of multiple joints (CMS/HCC) Benign essential hypertension (CMS/HCC)- Primary Essential hypertension, benign Hypertriglyceridemia (CMS/HCC) Pure hyperglyceridemia Primary hypertension (CMS/HCC)- Primary Unspecified essential hypertension Acute non-recurrent maxillary sinusitis Abscessed tooth Periapical abscess without sinus Chronic maxillary sinusitis Other chest pain Chronic maxillary sinusitis- Primary documented in this encounter [facility] Chief Complaint and Reason for Visit Chief Complaint Admit Date r07.89 July 02, 2024 1 :02pm Advance Directives No Advanced Directives Records Found Advance Directive Response Recorded Date/ Time Advance Directives No June 22, 2024 4:00pm Summary Purpose Family History No Family History Records FoundNo Family History Records Found Additional Source Comments Reason for Visit (unrecogniz ed section and content) Reason Comments abscess mouth Reason Comments Hypertension Reason Comments Sinusitis Care Teams (unrecognized sec tion and content) Credit Department Manager Relationship Specialty Start Date End Date Rhonda Pitts MD [address] [facility] [address] [place] [address] PCP - General Family Medicine 11/01/22 Rhonda Pitts MD [address] [facility] [address] [place] [address] PCP - [place] [employer] 01/25/23 Credit Department Manager Relationship Specialty Start Date End Date Rhonda Pitts MD [address] [facility] [address] [place] [address] PCP - General Family Medicine 11/01/22 Rhonda Pitts MD [address] [facility] [address] [place] [address] PCP - [place] 01/25/23 Credit Department Manager Relationship Specialty Start Date End Date Rhonda Pitts MD [address] [facility] [address] [place] [address] PCP - General Family Medicine 11/01/22 Rhonda Pitts MD [address] [facility] [address] [place] [address] PCP - [employer] 01/25/23 Credit Department Manager Relationship Specialty Start Date End Date Rhonda Pitts MD [address] [facility] [address] [place] [address] PCP - General Family Medicine 11/01/22 Rhonda Pitts MD [address] [facility] [address] [place] [address] PCP - [employer] 01/25/23 Team Status: Active Member Role Status Dates Rhonda Pitts MD Primary Care Provider Active Team Status: Inactive Member Role Status Dates Rhonda Pitts MD Primary Care Provider Active S tart: July 02, 2024 End: July 02, 2024 Magda Haywood MD Attending Provider Active St art: July 02, 2024 End: July 02, 2024 Credit Department Manager Relationship Specialty Start Date End Date Rhonda Pitts MD [address] [facility] [address] [place] [address] PCP - General Family Medicine 11/01/22 Rhonda Pitts MD [address] [facility] [address] [place] [address] PCP [facility] 01/25/23 Credit Department Manager Relationship Specialty Start Date End Date Rhonda Pitts MD [address] [facility] [address] [place] [address] PCP - General Family Medicine 11/01/22 Rhonda Pitts MD [address] [facility] [address] [place] [address] PCP - [employer] 01/25/23 Goals (unrecognized section and content) Goals may be documented in a n alternate section (unrecognized sect ion and content) No Status Records FoundNo Status Records Found INFORMATION SOURCE (unrecogn ized section and content) DATE CREATED AUTHOR 07/23/2024 [facility] DATE CREATED AUTHOR AUTHOR'S TRAN ATFRANKLIN 08/02/2024 [facility] FOR RECORDS PERTAINING TO PATIENTS WHO ARE OR HAVE BEEN ENROLLED IN A CHEMICAL DEPENDENCY/SUBSTANCEABUSE PROGRAM, SOME INFORMATION MAY BE OMITTED. This clinical summary was aggregated from multiple sources. Caution should be exercised in using it in the provision of clinical care. This summary normalizes information from multiple sources, and as a consequence, information in this document may materially change the coding, format and clinical context of patient data. In addition, data may be omitted in some cases. CLINICAL DECISIONS SHOULD BE BASED ON THE PRIMARY CLINICAL RECORDS. [employer] provides no warranty or guarantee of the accuracy or completeness of information in this document.
[2024-08-06] MEDS: LACTATED RINGER'S SOLUTION 1,000 ML 50 ML IV ×2 (08:19→10:13)
[2024-08-06] MEDS: OXYMETAZOLINE HCL 0.05% NASAL SPRAY 30 SPRAY NS (09:43)
[2024-08-06] MEDS: LIDOCAINE HCL 1%-EPINEPHRINE 1:100,000 20 ML MDV 5 ML INJ (10:01)
--- NOTE | 2024-08-06 10:57 | PC.NURSE ---
No nasal drainage noted; ice pack across bridge of nose
--- NOTE | 2024-08-06 11:01 | PC.NURSE ---
No active nasal drainage noted
--- NOTE | 2024-08-06 11:11 | PC.NURSE ---
No active nasal drainage noted
[2024-08-06] MEDS: ACETAMINOPHEN 325 MG TABLET 650 MG PO (11:26)
--- NOTE | 2024-08-06 11:31 | PC.NURSE ---
Medicated with Tylenol as ordered for nose pain; no active drainage noted
== END 2024-08-06 11:58 | disposition home or self-care (01) ==
PROVIDERS: PCP Family Medicine; Visit Provider Otolaryngology
PROC: (CPT 160; principal; 2024-08-06 09:30)
DX: J32.0 Chronic maxillary sinusitis (principal); I10 Essential (primary) hypertension; E78.5 Hyperlipidemia, unspecified; N40.0 Benign prostatic hyperplasia without lower urinary tract symptoms; L40.50 Arthropathic psoriasis, unspecified
CPT/HCPCS: 31256; 36415; 88305; J1100; J2250; J2371; J2405; J2704; J3010

== ENCOUNTER 2024-12-15 13:55 | Outpatient (OUT) | payer BC, SELFPAY ==
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
--- OUTSIDE RECORDS SUMMARY | 2024-12-15 13:57 | XMS_ITS | Encounter Summary ---
Author Organization [facility] Address [address] [place] [address] Care Team Providers Care Head Wood Grinder Name Role Phone Rhonda Richardson MD Primary Care Provider [phone] Encounter Details Date Type Department Care Team (Late st Contact Info) Description 11/12/2024 Orders Only [facility] 112 [facility] 110 [place] [address] Bernice Turner, LINOLEUM LAYER HELPER [address] [facility] 110 [place] [address] Poison neel Social History Tobacco Use Types Packs/Day Years [...] week 12/08/2023 How often do you attend chur or yazidi services? 1 to 4 times per year 12/08/2023 Do you belong to any clubs o r organizations such as temple groups, unions, fraternal or athletic groups, or [...] Recorded Patient Health Questionnaire-2 Score 0 11/12/2024 [facility] - Occupational Stress Questionnaire Answer Date Recorded [...] any time in the past 12 m [facility], were you homeless or living in a prison (including now)? No 12/08/2023 Sex and Gender Information Value Date Recorded Sex Assigned at Not on file Legal Sex Male 6:53 PM EDT Gender Identity Not on file Sexual Orientation Not on file documented as of this encounter Functional Status * Over the past 2 weeks, how often have you been bothered by any of the following problems? Question Answer Date of Assessment Author Little interest or pleasure in doing things Not at all 11/12/2024 3:22 PM EDT GEMINI PARRISH Feeling down, depressed, or hopeless Not at all 10/25 3:22 PM EDT GEMINI PARRISH Patient Health Questionnaire-2 Score 0 10/25 3:22 PM EDT GEMINI PARRISH documented as of this encounter Plan of Treatment Upcoming Encounters Date Type Department Care Team (Late st Contact Info) Description 12/22/2024 3:50 PM EDT Office Visit [facility] [address] [facility] [address] [place] [address] Neha Davey MD [address] [facility] 130 [place] [address] 10/04/2025 3:50 PM EDT Office Visit [facility] [address] [place] [address] Isabella Marley, APPLICATION DEVELOPMENT LIAISON-FOOD BEVERAGE MANAGER [address] [place] [address] documented as of this encounter Visit Diagnoses Diagnosis Poison neel Contact dermatitis and other eczema due to plants (except food) documented in this encounter Care Teams Head Wood Grinder Relationship Specialty Start Date End Date Rhonda Richardson MD [address] [facility] 110 [place] [address] PCP - General Family Medicine 11/01/22 documented as of this encounter
--- OUTSIDE RECORDS SUMMARY | 2024-12-15 13:57 | XMS_ITS | Encounter Summary ---
Author Organization [facility] Address [address] [place] [address] Care Team Providers Care Sql Etl Developer Name Role Phone Rhonda Richardson MD Primary Care Provider [phone] Encounter Details Date Type Department Care Team (Late st Contact Info) Description 12/14/2024 Bamboo flowsheet [facility] [address] [place] [address] Sylvia Park, [facility] [address] [place] [address] Social History Tobacco Use Types Packs/Day Years [...] How often do you attend chur or mandaen services? 1 to 4 times per year 12/08/2023 Do you belong to any clubs o r organizations such as mormonism groups, unions, fraternal or athletic groups, or [...] Recorded Patient Health Questionnaire-2 Score 0 11/12/2024 [facility] - Occupational Stress Questionnaire Answer Date [...] any time in the past 12 m [facility], were you homeless or living in a skilled nursing (including now)? No 12/08/2023 Sex and Gender Information Value Date Recorded Sex Assigned at Not on file Legal Sex Male 6:53 PM EDT Gender Identity Not on file Sexual Orientation Not on file documented as of this encounter Plan of Treatment Upcoming Encounters Date Type Department Care Team (Late st Contact Info) Description 12/22/2024 3:50 PM EDT Office Visit [facility] [address] [place] [address] Neha Davey MD [address] [place] [address] 10/04/2025 3:50 PM EDT Office Visit [facility] [address] [place] [address] Isabella Marley APRN-REGULATORY INTERNSHIP [address] [place], [place] [id number] documented as of this encounter Visit Diagnoses Not on filedocumented in this encounter Care Teams Sql Etl Developer Relationship Specialty Start Date End Date Rhonda Richardson MD [address] [place] [address] PCP - General Family Medicine 11/01/22 documented as of this encounter
--- OUTSIDE RECORDS SUMMARY | 2024-12-15 13:57 | XMS_ITS | Clinical Summary ---
Author Organization [facility] Address [address] [place] [address] Care Team Providers Care Skilled Nursing Facilities Professional Name Role Phone Rhonda Richardson MD Primary Care Provider [phone] Allergies No known active allergies Medications amLODIPine (Norvasc) 5 MG tabletIndications :Primary hypertension Take 1/2 tablet daily 4 Active irbesartan-hydroC HLOROthiazide (Avalide) 300-12.5 MG tabletIndications :Primary hypertension TAKE 1 TABLET BY MOUTH EVERY DAY IN THE MORNING 100 tablet 3 5 Active meloxicam (Mobic) 15 MG tabletIndications :Acute non-recurrent maxillary sinusitis,Chronic maxillary sinusitis Take 1 tablet (15 mg) by mouth Daily 90 tablet 3 5 Active predniSONE (Deltasone) 10 MG tabletIndications :Acute pain of right shoulder Take 4 tablets (40 mg) by mouth Daily for 4 days, THEN 3 tablets (30 mg) Daily for 4 days, THEN 2 tablets (20 mg) Daily for 4 days, THEN 1 tablet (10 mg) Daily for 4 days. 40 tablet 5 11/29/19 25 Hospital, Clinic, or Other Facility Administered Medication Ordered Dose Route Frequency Start Date End Date Status triamcinolone acetonide (Kenalog) injection 5 mgIndications:Psoriasi s vulgaris 5 mg INTRA-LESION Once 08/22/2023 Active Active Problems Problem Noted Date Diagnosed Date Acute non-recurrent maxillary sinusitis 06/18/19 25 Assessment & Plan (06/18/2024 3:33 PM EST): Has a lot of nasal drainage When running is discolored, yellowish greenish Chronic maxillary sinusitis 06/18/2024 Assessment & Plan (06/18/2024 3:38 PM EST): Add Probiotic to help replenish the good bacteria that are destroyed by the Antibiotics Florastor Florajen Align or try Activia in Yogurt Probiotics reduce the risk of antibiotic induced diarrhea Consider ENT Consider N/S if high suspicion for CSF leak Abscessed tooth 06/18/2024 Assessment & Plan (06/18/2024 3:32 PM EST): S/p root canal Other chest pain 06/18/2024 Hypertriglyceridemia 12/09/2023 Assessment & Plan (12/09/2023 3:31 PM EDT): Encouraged weight loss, Exercise and Fish oils Psoriatic arthritis of multiple joints Assessment & Plan (06/06/2023 3:34 PM EST): I discussed with patient that while on prednisone, do not take any NSAIDs like Ibuprofen, Naprosyn, Alleve or motrin. Watch for any side effects like abdominal pain and nausea. Take the prednisone with food or milk. Prednisone may increase appetite. While on prednisone, watch for any sugar elevations. Acute left-sided low back pain without sciatica 11/05/2022 Assessment & Plan (11/05/2022 3:59 PM EDT): I discussed with patient that while on prednisone, do not take any NSAIDs like Ibuprofen, Naprosyn, Alleve or motrin. Watch for any side effects like abdominal pain and nausea. Take the prednisone with food or milk. Prednisone may increase appetite. While on prednisone, watch for any sugar elevations. Benign essential hypertension 11/04/2022 Assessment & Plan (12/09/2023 3:31 PM EDT): Our specific goals, for your hypertension, is [...] the importance of taking them as prescribed. [employer] handouts Benign prostatic hyperplasia 11/04/2022 Hypertension 11/04/2022 Assessment & Plan (06/18/2024 3:22 PM EST): Our specific goals, for your hypertension, is [...] the importance of taking them as prescribed. MR Prestaouts Assessment & Plan (06/06/2023 3:24 PM EST): Our specific goals, for your hypertension, is [...] the importance of taking them as prescribed. [employer] handouts Assessment & Plan (11/05/2022 3:49 PM EDT): Our specific goals, for your hypertension, is [...] taking them as prescribed. DASH diet handouts Intractable chronic cluster headache 11/04/2022 Psoriasis vulgaris 11/04/2022 Encounters Date Type Department Care Team Description 12/14/2024 3:30 PM EDT Clinical Support [facility] [address] [place] [address] Sylvia Park CCC-A Sensorineural hearing loss (SNHL) of both ears (Primary Dx); Tinnitus, bilateral 12/14/2024 Bamboo flowsheet [facility] [address] [place] [address] Sylvia Park CCC-A 12/07/2024 Telephone [facility] [address] [place] [address] Rhonda Richardson MD xray order 11/12/2024 3:30 PM EDT Office Visit [facility] [address] [place] [address] Bernice Turner NP Acute pain of right shoulder (Primary Dx); Irritant contact dermatitis due to plants, except food 11/12/2024 Orders Only [facility] [address] [place] [address] Bernice Turner NP Poison neel 11/12/2024 Bamboo flowsheet [facility] [address] [place] [address] Bernice Turner NP 11/12/2024 Travel 10/09/2024 2:30 PM EDT Office Visit [facility] [place] [address] [place] [address] Neha Davey MD DNS (deviated nasal septum) (Primary Dx); Nasal valve collapse; Bilateral hearing loss, unspecified hearing loss type; Chronic maxillary sinusitis 10/09/2024 Bamboo flowsheet [facility] [place] [address] [place] [address] Neha Davey MD 10/09/2024 Travel 10/01/2024 3:05 PM EDT Office Visit [facility] [address] [place] [address] Isabella Marley, SPORTS CLERK-PULLEY WORKER Psoriasis vulgaris 10/01/2024 Bamboo flowsheet [facility] [address] [place] [address] Isabella Marley, SPORTS CLERK-PULLEY WORKER 10/01/2024 Travel 09/17/2024 Refill [facility] [address] [facility] 110 [place] [address] Rhonda Richardson MD Acute non-recurrent maxillary sinusitis; Chronic maxillary sinusitis 09/15/2024 Telephone [facility] [address] [facility] 100 [place] [address] Rhonda Richardson MD from Last 3 Months Immunizations Immunization Administration Dates Next Due Influenza, seasonal, intradermal, preservative f ree 03/13/2019 Family History Medical History Relation Name Comments Stroke Father Chris Villalta COPD Mother Christi Jefferson Cancer Paternal Grandfather Gaudencio Villalta Hearing loss Paternal Grandmother Syeda Villalta Cancer Sister Malena Villalta Stomach cancer Sister Malena Villalta Relation Name Status Comments Brother Alive Father Chris Villalta Alive Mother Christi Jefferson Paternal Grandfather Gaudencio Villalta Paternal Grandmother Syeda Villalta Sister Malena Villalta Social History Tobacco Use Types Packs/Day Years Used Date Smoking Tobacco: Never Smokeless Tobacco: Never Tobacco Cessation:Counseling Given: Yes Alcohol Use Standard Drinks/Week Comments Yes 1 [...] 12/08/2023 How often do you attend chur ch or restorationist services? 1 to 4 times per year 12/08/2023 Do you belong to any clubs o r organizations such as roman catholic groups, unions, fraternal or athletic groups, or [...] Recorded Patient Health Questionnaire-2 Score 0 11/12/2024 [facility] Occupational [facility] Questionnaire Answer Date [...] any time in the past 12 m [facility], were you homeless or living in a group home (including now)? No 12/08/2023 Sex and Gender Information Value Date Recorded Sex Assigned at Not on file Legal Sex Male 6:53 PM EDT Gender Identity Not on file Sexual Orientation Not on file Last Filed Vital Signs Vital Sign Reading Time Taken Comments Blood Pressure 128/80 11/12/2024 3:29 PM EDT Pulse 78 11/12/2024 3:29 PM EDT Temperature - - Respiratory Rate 16 11/12/2024 3:29 PM EDT Oxygen Saturation 96% 11/12/2024 3:29 PM EDT Inhaled Oxygen Concentration - - Weight 96.2 kg (212 lb) 11/12/2024 3:29 PM EDT Height 177.8 cm (5' 10 ) 11/12/2024 3:29 PM EDT Body Mass Index 30.42 11/12/2024 3:29 PM EDT Plan of Treatment Upcoming Encounters Date Type Department Care Team (Late st Contact Info) Description 12/22/2024 3:50 PM EDT Office Visit [facility] 112 [facility] 130 [place] [address] Neha Davey MD [address] [address] 10/04/2025 3:50 PM EDT Office Visit [facility] [address] [place] [address] Isabella Marley, SPORTS CLERK-PULLEY WORKER [address] [place] [address] Health Maintenance Due Date Last Done Comments CT Colonography 1971 FIT-DNA 1971 FIT 1971 FOBT 1971 Sigmoidoscopy 1971 Influenza Vaccine (#1) 2025 03/13/2019 Colonoscopy 11/28/2025 11/29/2015, 11/21/2015 Colorectal Cancer Screening 11/28/2025 Procedures Procedure Name Priority Date/Time Associated Diagnosis Comments AUDITORY FUNCTION TESTS Routine 12/14/2024 4:36 PM EDT COLONOSCOPY Routine 11/21/2015 12:00 PM EDT from Last 3 Months or Most Recently Relevant to Health Maintenance Results * Auditory function tests (12/14/2024 4:36 [...] hearing loss at 8K Hz Sylvia Park [facility] AUDIOLOGY SERVICES ORDERA BLES Final Result * Colonoscopy (11/21/2015 12:00 PM EDT) Anatomical Region Laterality Modality Endoscopy 11/21/2015 12:0 0 PM EDT Narrative 11/21/2015 12:00 PM EDT PERFORMED AT [facility] LOCATION:[id number] Negative Procedure Note CONVERSION, GENERIC - 10/11/2022 PERFORMED AT [facility] LOCATION:[id number] Negative us Rhonda Richardson MD ENDOSCOPY PROCEDURE ORDERABLES F inal Result from Last 3 Months or Most Recently Relevant to Health Maintenance Insurance [facility] Care Teams Skilled Nursing Facilities Professional Relationship Specialty Start Date End Date Rhonda Richardson MD [address] [facility] [address] [place] [address] PCP - General Family Medicine 11/01/22
--- OUTSIDE RECORDS SUMMARY | 2024-12-15 13:57 | XMS_ITS | Encounter Summary ---
Author Organization [facility] Address [address] [place] [address] Care Team Providers Care Computing Tutor Name Role Phone Rhonda Richardson MD Primary Care Provider [phone] Reason for Visit * Reason Onset Date Comments xray order 12/07/2024 Encounter Details Date Type Department Care Team (Late st Contact Info) Description 12/07/2024 Telephone [facility] 112 [facility] 110 [place] [address] Rhonda Richardson MD 112 [facility] 110 [place] [address] xray order Social History Tobacco Use Types Packs/Day Years [...] week 12/08/2023 How often do you attend [facility] or judaism services? 1 to 4 times per year 12/08/2023 Do you belong to any clubs o r organizations such as sikh groups, unions, fraternal or athletic groups, or [...] Recorded Patient Health Questionnaire-2 Score 0 11/12/2024 [facility] - Occupational Stress Questionnaire Answer Date Recorded [...] any time in the past 12 m [facility], were you homeless or living in a fdc (including now)? No 12/08/2023 Sex and Gender Information Value Date Recorded Sex Assigned at Not on file Legal Sex Male 6:53 PM EDT Gender Identity Not on file Sexual Orientation Not on file documented as of this encounter Miscellaneous Notes * Telephone Encounter - Lily Broussard LPN - 12/07/2024 3:43 PM EDT [facility] sched dept called requesting order for xray of orbits prior to mri--sent documented in this encounter Plan of Treatment Upcoming Encounters Date Type Department Care Team (Late st Contact Info) Description 12/22/2024 3:50 PM EDT Office Visit [facility] [address] [facility] [address] [place] [address] Neha Davey MD [address] [place] [address] 10/04/2025 3:50 PM EDT Office Visit [facility] [address] [place] [address] Isabella Marley APRN-CHALK EXTRUDING MACHINE OPERATOR [address] [place] [address] Scheduled Orders Name Type Priority Associated Diagnoses Orde r Schedule XR ORBITS 1 to 3 VIEWS Imaging Routine Encounter for imaging to screen for eye metal prior to magnetic resonance imaging (MRI) Expected: 12/07/2024, Expires: 12/07/2025 documented as of this encounter Visit Diagnoses Diagnosis Encounter for imaging to screen for eye metal prior to magnetic resonance imaging (MRI) documented in this encounter Care Teams Computing Tutor Relationship Specialty Start Date End Date Rhonda Richardson MD 112 [facility] 110 [place] [address] PCP - General Family Medicine 11/01/22 documented as of this encounter
--- OUTSIDE RECORDS SUMMARY | 2024-12-15 13:57 | XMS_ITS | Encounter Summary ---
Author Organization [facility] Address [address] [facility] [place] [address] Care Team Providers Care Career Services Officer Name Role Phone Isabella Marley CARLENE-ASSISTANT SALES MANAGER Unavailable [phone] Rhonda Richardson MD Primary Care Provider [phone] Rhonda Richardson MD Unavailable Encounter Details Date Type Department Care Team (Late st Contact Info) Description 10/28/2022 Abstract [facility] [address] [facility] [address] [place] [phone] Rhonda Richardson MD [address] [facility] [address] [place] [address] Social History Tobacco Use Types Packs/Day Years Used Date Smoking Tobacco: Never Tobacco Cessation:Counseling Given: Not Answered Alcohol Use Standard Drinks/Week Comments Yes 2 (1 standard drink = 0.6 oz pur e alcohol) caffeine: soda Sex and Gender Information Value Date Recorded Sex Assigned at Not on file Legal Sex Male 6:53 PM EDT Gender Identity Not on file Sexual Orientation Not on file documented as of this encounter Plan of Treatment Upcoming Encounters Date Type Department Care Team (Late Contact Info) Description 12/22/2024 3:50 PM EDT Office Visit [facility] [address] [facility] [address] [place] [phone] Neha Davey MD [address] [place] [facility] [address] [place], [place] [phone] 10/04/2025 3:50 PM EDT Office Visit [facility] [address] [place] [phone] Isabella Marley APRN-ASSISTANT SALES MANAGER [address] [place] [address] documented as of this encounter Visit Diagnoses Not on filedocumented in this encounter Care Teams Career Services Officer Relationship Specialty Start Date End Date Isabella Marley APRN-ASSISTANT SALES MANAGER [address] [place] [address] PCP - [facility] [employer] 06/27/21 Rhonda Richardson MD [address] [place], [place] [phone] PCP - General Family Medicine 11/01/22 Rhonda Richardson MD [address] [place], [place] [phone] PCP - Maria Del [employer] [employer] 01/25/23 documented as of this encounter
--- NOTE | 2024-12-15 14:00 | MR_ITS ---
[address] [address] Patient Name: RADHA SHANE MRN: [id number] date: 1970 Sex: M Assigned Patient Location: [facility] Current Patient Location: [facility] Accession/Order Number: [id number] Exam Date: 12/15/2024 16:24 Report Date: 12/15/2024 16:58 At the request of: NATHAN WHITE Procedure: MR shoulder RT wo con EXAMINATION: MRI OF THE RIGHT SHOULDER CLINICAL HISTORY: Chronic right shoulder pain after injury 4 months ago. COMPARISON: None TECHNIQUE: Multiecho, multiplanar imaging was performed with use of an extremity coil. No contrast was administered. FINDINGS: Bones/Joints: Small joint effusion. Subacromial/subdeltoid bursitis. Mild degenerative changes of the AC and glenohumeral joints. Inferior glenohumeral ligament appears unremarkable. Subtle cystic changes involving the humeral head without bone marrow edema or fracture. Labrum: No definite tear. Biceps tendon: Situated within the bicipital groove a small amount of surrounding fluid. No abnormal signal to suggest tendinitis or tear. Supraspinatus: Tendinosis with partial-thickness tear joint side approximately 1.2 cm from the greater tubercle. No full-thickness tear is seen. Infraspinatus: Normal Teres Minor: Normal Subscapularis: Normal MR/MR shoulder RT wo con IMPRESSION: 1. SMALL JOINT EFFUSION WITH SUBACROMIAL/SUBDELTOID BURSITIS. THERE IS ASSOCIATED TENDINOSIS WITH PARTIAL-THICKNESS TEAR JOINT SIDE OF THE SUPRASPINATUS APPROXIMATELY 1.2 CM FROM THE GREATER TUBERCLE. Impression dictated by: Cj Russell Jr., D.O. 12/15/2024 4:58 PM Dictation Location: [place] [address] Electronically authenticated by: [id number] Y Date: 12/15/2024 16:58
--- NOTE | 2024-12-15 14:00 | XR_ITS ---
[address] [address] Patient Name: RADHA SHANE MRN: [id number] date: 1970 Sex: M Assigned Patient Location: [facility] Current Patient Location: [facility] Accession/Order Number: [id number] Exam Date: 12/15/2024 14:19 Report Date: 12/15/2024 14:21 At the request of: NATHAN WHITE Procedure: XR foreign body eye EMANI 2 views of the orbits INDICATION:: Pre-MRI imaging COMPARISON: Sinus CT 07 20 2024 FINDINGS AND IMPRESSION: No radiopaque metallic foreign bodies within the orbits. Impression dictated by: Aleksandr Rodriguez M.D. 12/15/2024 2:21 PM Dictation Location: [place] [address] Electronically authenticated by: [id number] Y Date: 12/15/2024 14:21
== END 2024-12-15 13:56 | disposition home or self-care (01) ==
LOC: RAD 13:55
PROVIDERS: PCP Family Medicine; Visit Provider Nurse Practitioner Family
DX: M25.511 Pain in right shoulder (principal); M25.411 Effusion, right shoulder; M75.51 Bursitis of right shoulder
CPT/HCPCS: 70030; 73221